=== PATIENT | male | born 1965 | race Caucasian/White ===

== ENCOUNTER → 2021-05-17 | Outpatient (CLI) | payer OTHER ==
[~2021-05-17] MED LIST: ALKA-SELTZER O1 EACH PO; NORCO 10-325 T1 EACH PO; VIAGRA25 MG PO
== END ==
LOC: CAT 09:16
PROVIDERS: ATTEND Specialist
DX: M51.36 Other intervertebral disc degeneration, lumbar region (principal); M43.16 Spondylolisthesis, lumbar region; M48.061 Spinal stenosis, lumbar region without neurogenic claudication

== ENCOUNTER → 2021-05-17 | Outpatient (CLI) | payer OTHER ==
[2021-05-17 10:03] LABS: HEMATOCRIT 39.4 % (42.0-52.0); HEMOGLOBIN 13.2 gm/dL (14.0-18.0); MCH 29.9 pg (26.0-34.0); MCHC 33.5 g/dL (28.0-37.0); MCV 89.2 fL (80.0-100.0); RBC 4.42 mil/uL (4.50-6.00); RDW 14.5 % (10.5-14.5); WBC 8.8 thou/uL (4.0-11.0)
[2021-05-17 10:20] LABS: ALBUMIN 3.6 g/dL (3.4-5.0); CALCIUM 8.6 mg/dL (8.5-10.1); CREATININE 2.3 mg/dL (0.7-1.3); INR 0.94; POTASSIUM 4.4 mmol/L (3.5-5.1); PROTIME 10.3 Seconds (10.5-12.1); TOTAL BILIRUBIN 0.3 mg/dL (0.2-1.0); TOTAL PROTEIN 6.8 g/dL (6.4-8.2)
[2021-05-17 10:31] LABS: URINE BILIRUBIN NEGATIVE (Negative); URINE BLOOD TRACE (Negative); URINE CLARITY CLEAR; URINE COLOR YELLOW; URINE GLUCOSE-RANDOM* NEGATIVE (Negative); URINE KETONES NEGATIVE (Negative); URINE LEUKOCYTES-REFLEX NEGATIVE (Negative); URINE NITRITE-REFLEX NEGATIVE (Negative); URINE PROTEIN (DIPSTICK) TRACE (Negative); URINE UROBILINOGEN 0.2 E.U./dl (0.2-1.0)
--- NOTE | 2021-05-17 13:35 | EKG ---
[place] [address] [facility] [place] [address] ELECTROCARDIOGRAM REPORT Name: LEVON GUARDADO Room #: [id number] Admission: 05/17/21 Attend Phys: Arash Cervantes, Discharge: Date of : 67 Report #: [id number] [facility] Test Date: 2021-05-17 Test Time: 09:44:00 Pat Name: LEVON GUARDADO Department: Room: Gender: M Mult Au Matic Operator: CELINE HUTSON : 1965 Requested By: Arash Cervantes Order Number: [id number] MD: Sage Mercado Measurements Intervals [place] Rate: 71 P: 68 MI: 181 QRS: 7 QRSD: 122 T: 19 QT: 454 QTc: 494 Interpretive Statements Sinus rhythm Probable left ventricular hypertrophy ST elev, probable normal early repol pattern Borderline prolonged QT interval No previous ECG available for comparison Electronically Signed On 05-17-2021 13:35:30 CDT by Sage Mercado [email or web address] <ELECTRONICALLY SIGNED> By: Sage Mercado MD, [facility] 05/17/21 1335 0944 3 Sage Mercado MD, FACC /EPI
== END ==
LOC: PAC
PROVIDERS: ATTEND Specialist
DX: M43.16 Spondylolisthesis, lumbar region (principal); M48.061 Spinal stenosis, lumbar region without neurogenic claudication